=== PATIENT | female | born 1995 | race Caucasian/White ===

== ENCOUNTER 2016-11-14 22:31 | Outpatient (CLI) | payer OTHER ==
[~2016-11-14] VITALS: Ht 156.2 cm; Wt 97.0 kg
[2016-11-14] MEDS ORDERED: PREN1TAB79 PO (22:50)
[2016-11-14 22:51] VITALS: BP 98/53; PULSE 70; RESP 18; Ht 156.2 cm; Wt 97.0 kg
--- NOTE | 2016-11-14 23:57 | RADRPT ---
PROCEDURE: ULTRASOUND BIOPHYSICAL PROFILE CLINICAL INDICATION: 21-year-old female in labor for free of 5 ml the. TECHNIQUE: Multiple sonographic images were obtained in order to perform a biophysical profile The images were reviewed on a PACS workstation. COMPARISON: None. FINDINGS: There is a single viable intrauterine gestation. There is a vertex presentation. Cardiac activity i s present at 152 beats per minute. The placenta is anterior. The results of the biophysical profile are as follows: breathing movement = 2/2 Gross body movement = 2/2 tone = 2/2 Qualitative amniotic fluid volume = 2/2 Amniotic fluid index equals 7.3 cm. This yields a biophysical profile score of 8/8. IMPRESSION: Biophysical profile score is 8/8. .Josiah Vega MD, Date Time Electronically viewed and signed by .Josiah Vega MD, on 11/14/2016 23:56 .M/
--- NOTE | 2016-11-15 00:51 | PN ---
Date/Time of Note Date/Time of Note DATE: 11/15/16 TIME: 00:48 OB Subjective Subjective Subjective 21 yo P0 @ 36.2 wks w ctx, no LOF, no VB, pos FM OB Objective Objective Objective VS: 98/53, 70, 18, 98.3 Abdomen- gravid, n/t sve- l/c/p FHT- 120's; Cat I [place]- irreg ctx Abdomen: WNL Cervical Dilatation: None Effacement: 0% Station: -3 Membranes: Intact Heart Rate: 120's Accelerations: Accelerations Present Decelerations: No Decelerations Varibility: Moderate Contractions on Admission: < 5 Minutes Apart Intensity: Moderate OB Assessment/Plan Other Assessment: 21 yo P 0 @ 36 wks w ctx - not yet in labor - reassuring status Other plan: nurse to recheck VE; if no signficant change, d/c home ANABEL VAZ MD Nov 15, 2016 00:51
--- NOTE | 2016-11-15 04:52 | TRIAGE ---
OB Triage Datetime Report Generated by CPN: 11/15/2016 04:52 Datetime: 11/15/2016 01:35 Stage of : OB Triage Labor Evaluation Frequency: 1-5 Monitor Mode: External Duration (sec)2399: 40-130 Quality: Mild Pattern: Normal: <= 5 Contractions in 10 Minutes Resting Tone [place]: Relaxed Heart Rate FHR Baseline Rate: 115 Monitor Mode: External US Variability: Moderate 6-25 bpm Accelerations: 15X15 Decelerations: None Category: Category I Datetime: 11/15/2016 01:30 Vaginal Exam Dilatation (cms): 0.0 Effacement (%): 50 Station: -2 Exam By: JEAN Meadows Vaginal Bleeding: None Cervix, Consistency: Firm Cervix, Position: Posterior Datetime: 11/15/2016 01:00 Stage of : OB Triage Labor Evaluation Frequency: 1-4 Monitor Mode: External Duration (sec)2399: 40-110 Quality: Mild Pattern: Normal: <= 5 Contractions in 10 Minutes Resting Tone [place]: Relaxed Heart Rate FHR Baseline Rate: 120 Monitor Mode: External US FHR Baseline Changes: No Baseline Change Variability: Moderate 6-25 bpm Accelerations: 15X15 Decelerations: None Category: Category I Datetime: 11/15/2016 00:45 Stage of : OB Triage Datetime: 11/15/2016 00:00 Stage of : OB Triage Labor Evaluation Frequency: 1-4.5 Monitor Mode: External Duration (sec)2399: 40-110 Quality: Mild Pattern: Normal: <= 5 Contractions in 10 Minutes Resting Tone [place]: Relaxed Heart Rate FHR Baseline Rate: 120 Monitor Mode: External US Variability: Moderate 6-25 bpm Accelerations: 15X15 Decelerations: None Category: Category I Datetime: 11/14/2016 23:23 Vaginal Exam Dilatation (cms): 0.0 Effacement (%): 50 Station: -2 Exam By: JEAN Meadows Vaginal Bleeding: None Cervix, Consistency: Firm Cervix, Position: Posterior Datetime: 11/14/2016 23:15 Stage of : OB Triage Datetime: 11/14/2016 23:00 Stage of : OB Triage Labor Evaluation Frequency: 1.5-3.5 Monitor Mode: External Duration (sec)2399: 40-110 Quality: Mild Pattern: Normal: <= 5 Contractions in 10 Minutes Resting Tone [place]: Relaxed Heart Rate FHR Baseline Rate: 125 Monitor Mode: External US Variability: Moderate 6-25 bpm Accelerations: 15X15 Decelerations: None Category: Category I Datetime: 11/14/2016 22:45 EGA: 36.2 Datetime: 11/14/2016 22:44 Stage of : OB Triage Assessment Type: Triage Maternal Assessment Level of Consciousness: Fully Conscious DTR's/Clonus: DTRs 2+; No Clonus Headache: Denies Blurred Vision: No Respiratory Effort: Unlabored; Regular Rhythm; Equal Expansion Breath Sounds, Left: Clear and Equal Breath Sounds, Right: Clear and Equal Nausea/Vomiting: Hx of Nausea/Vomiting (Annotations: Nausea only throughout day) RUQ Epigastric Pain: Denies Lower Extremities Edema: Bilateral Lower Extremities Degree: 1+ Upper Extremities Edema: None Degree: None Facial Edema: None Temperature Route: Oral Fall Risk Assessment History of Falling: (0) No Secondary Diagnosis: (0) No Ambulatory Aid: (0) Bedrest/Nurse Assist IV Therapy: (0) No Gait: (0) Normal/Bedrest/Immobile Mental Status: (0) Oriented to Own Ability Fall Score: 0 Fall Risk Score Definition: No Risk: No action required Datetime: 11/14/2016 22:41 Stage of : OB Triage Monitor Mode: External Contraction Comments: [place] applied Heart Rate FHR Baseline Rate: 130 Monitor Mode: External US Comments: EFM applied Datetime: 11/14/2016 22:40 Time of Arrival: 11/14/2016 22:26 Arrived By: Wheelchair Arrived From: Home Chief Complaint: Absent movt all day Abdominal pain Mucous discharge Movement: Absent Contractions: Irregular Time Contractions Began: 11/14/2016 18:00 Contractions: q5mins Rupture of Membranes: Denies Vaginal Bleeding: None Vaginal Discharge: Present Recent Sexual Intercouse: Denies Abdominal Trauma: Not Applicable Patient Complaints: Contractions; Cramping; Back Pain Time Provider Notified: 11/14/2016 23:15 Provider Notified: Initial Plan: JEANNIE x2, VE
== END 2016-11-15 01:47 | disposition home or self-care (01) ==
LOC: OBT 22:31 → L-D 22:31 → OBT 11-15 01:47
PROVIDERS: ATTEND Obstetrics & Gynecology
DX: O26.893 Other specified pregnancy related conditions, third trimester (principal); Z3A.36 36 weeks gestation of pregnancy
CPT/HCPCS: 76818; Z7500; G0463

== ENCOUNTER 2018-04-11 09:55 | Inpatient (IN) | END 2018-04-13 20:15 | disposition home or self-care (01) | DRG 775 ==